=== PATIENT | female | born 1945 | race Two or more races ===

== ENCOUNTER 2024-08-26 19:36 | Emergency (ER) | payer OTHER ==
[~2024-08-26] VITALS: Ht 152.4 cm; Wt 65.8 kg
[2024-08-26] MEDS ORDERED: COZAAR50 MG PO (19:47)
[2024-08-26] MEDS ORDERED: NORVASC2.5 M1 PO (19:48)
[2024-08-26] MEDS ORDERED: KETOROLAC TROMETHAMINE 30 MG VIAL IM STA (20:07)
[2024-08-26] MEDS ORDERED: KETOROLAC TROMETHAMINE 30 MG VIAL ONE (20:13)
[2024-08-26 20:27] LABS: HEMATOCRIT 34.5 % (36.0-45.00); HEMOGLOBIN 11.8 g/dL (12.0-15.00); MEAN CELL VOLUME 98.3 fL (80.00-100.00); MEAN CORPUSCULAR HEMOGLOBIN 33.5 pg (27.00-32.0); MEAN CORPUSCULAR HGB CONC 34.1 g/dl (32.0-36.0); PLATELET COUNT 253 K/uL (150-450); RED BLOOD COUNT 3.51 M/uL (4.00-6.00)
[2024-08-26 20:55] LABS: CALCIUM 9.7 mg/dL (8.5-10.1); CREATININE SERUM 0.71 mg/dL (0.55-1.02); GFR 79.41; POTASSIUM 3.18 mEq/L (3.5-5.1)
== END 2024-08-26 21:48 | disposition home or self-care (01) ==
LOC: ER 19:37
PROVIDERS: General Practice
DX: L53.8 Other specified erythematous conditions (principal); M25.551 Pain in right hip
CPT/HCPCS: 36415; 96372; 99282; J1885